=== PATIENT | female | born 1935 | race Caucasian/White ===

== ENCOUNTER → 2017-08-13 | Outpatient (CLI) | payer MEDICARE, BC | END | disposition home or self-care (01) | LOC: HKI 11:06 | DX: Z09 Encounter for follow-up examination after completed treatment for conditions other than malignant neoplasm (principal); S86.812A Strain of other muscle(s) and tendon(s) at lower leg level, left leg, initial encounter; X58.XXXA Exposure to other specified factors, initial encounter; Z96.653 Presence of artificial knee joint, bilateral | CPT/HCPCS: 73562; 73562-LT ==

== ENCOUNTER → 2018-04-09 | Outpatient (CLI) | payer MEDICARE, BC | END | disposition home or self-care (01) | LOC: HKI 14:31 | DX: Z47.1 Aftercare following joint replacement surgery (principal); Z96.652 Presence of left artificial knee joint | CPT/HCPCS: 73564; 73564-50 ==